=== PATIENT | female | born 1995 | race Caucasian/White ===

== ENCOUNTER → 2017-03-04 | Outpatient (CLI) | payer OTHER ==
[2014-08-31 01:08] VITALS: BP 123/62
[2017-03-04 17:08] LABS: INSULIN LEVEL 4.3 uIU/mL (2.6-24.9)
[2017-03-04 18:07] LABS: DHEA SO4 207.1 ug/dL (110.0-431.7)
[2017-03-08 03:16] LABS: TESTOSTERONE FREE 0.88 ng/dL (0.10-0.85); TESTOSTERONE TOTAL 50 ng/dL (8-48)
== END | disposition home or self-care (01) ==
LOC: LAB 10:32
PROVIDERS: ATTEND Obstetrics & Gynecology
DX: N97.9 Female infertility, unspecified (principal)
CPT/HCPCS: 36415; 82627; 83525; 84402; 84403

== ENCOUNTER → 2017-03-04 | Outpatient (CLI) | payer OTHER ==
[2014-08-31 01:08] VITALS: BP 123/62
--- NOTE | 2017-03-04 15:45 | RAD ---
Pelvic ultrasound, 03/04/2017: History: Ovarian cysts Transabdominal and transvaginal scans were obtained. The uterus measures 8.5 x 4.9 x 3.5 cm. The central uterine echo complex measures 4-5 mm. The myometrial echo pattern is mildly heterogeneous. Tiny nabothian cysts are present in the cervical region. The right ovary measures 3.8 x 2.7 x 2.9 cm. The left ovary measures 3.2 x 3.4 x 2.8 cm. Several small subcentimeter follicular cysts are present in both ovaries. No adnexal mass is seen. A trace amount of free fluid was noted in the pelvis. This amount of fluid can be on a physiologic basis. Minimal echogenic debris is noted in the urinary bladder. Is there clinical evidence of urinary tract infection? IMPRESSION: 1. No evidence of a pelvic mass. 2. Minimal echogenic debris in the urinary bladder.
== END | disposition home or self-care (01) ==
LOC: US 13:46
PROVIDERS: ATTEND Obstetrics & Gynecology
DX: N83.201 Unspecified ovarian cyst, right side (principal); N83.202 Unspecified ovarian cyst, left side
CPT/HCPCS: 76830; 76856